=== PATIENT | female | born 1950 | race Caucasian/White ===

== ENCOUNTER → 2017-01-10 | Outpatient (CLI) | payer OTHER ==
[~2017-01-10] MED LIST: ASPIR-LOX325 MG PO; ATIVAN0.5 MG PO; AVELOX400 MG PO; BACTRIM DS 8001 TA1 PO; BENTYL10 MG PO; CIPRO250 MG PO; CLARITIN10 MG PO; MOTRIN600 MG PO; PEPCID20 MG PO; PHENERGAN25 M1 PO; TRIMOX500 MG PO; ZITHROMAX Z PA250 MG PO; Zofran4 MG PO
== END | disposition home or self-care (01) ==
LOC: RAD 14:24
DX: R05 Cough (principal); R06.02 Shortness of breath; J44.9 Chronic obstructive pulmonary disease, unspecified; Z87.891 Personal history of nicotine dependence

== ENCOUNTER → 2017-02-19 | Outpatient (CLI) | payer OTHER | END | disposition home or self-care (01) | LOC: US 02-12 14:00 | DX: D25.9 Leiomyoma of uterus, unspecified (principal) ==

== ENCOUNTER → 2018-04-03 | Day surgery (SDC) | payer OTHER | END | disposition home or self-care (01) | LOC: SDC 03-29 08:00 | DX: Z12.11 Encounter for screening for malignant neoplasm of colon (principal); Z53.8 Procedure and treatment not carried out for other reasons ==

== ENCOUNTER 2019-03-22 13:33 | Emergency (ER) | payer OTHER ==
[~2019-03-22] VITALS: Ht 152.4 cm; Wt 49.9 kg
[2019-03-22] MEDS ORDERED: DIFLUCAN150 MG PO (13:49)
[2019-03-22] MEDS ORDERED: AUGMENTIN 500500 M1 PO (13:49)
== END 2019-03-22 14:25 | disposition home or self-care (01) ==
LOC: ED 13:33
DX: L03.115 Cellulitis of right lower limb (principal); Z88.2 Allergy status to sulfonamides; Z79.899 Other long term (current) drug therapy

== ENCOUNTER → 2020-05-26 | Outpatient (CLI) | payer OTHER ==
[~2020-05-26] MED LIST changes: +AUGMENTIN 500500 M1 PO; +DIFLUCAN150 MG PO
[2020-05-26 11:34] LABS: HEMATOCRIT 46.4 % (37.0-47.0); MEAN CELL VOLUME 98.7 fl (81.0-99.0); MEAN CORPUSCULAR HGB 31.3 pg (27.0-31.0); MEAN CORPUSCULAR HGB CONC 31.7 g/dl (33.0-37.0); MEAN PLATELET VOLUME 11.3 fl (9.6-12.3); RED BLOOD COUNT 4.7 10*6/uL (4.10-5.10); RED CELL DISTRI WIDTH 12.7 % (0-14.5); WHITE BLOOD COUNT 6.9 10*3/uL (4.8-10.8)
[2020-05-26 12:04] LABS: ALBUMIN 3.9 gm/dl (3.1-4.5); BUN 13 mg/dl (7-24); CHLORIDE 110 mmol/L (98-107); CHOLESTEROL 226 mg/dL (<200); CREATININE 0.74 mg/dL (0.55-1.02); POTASSIUM 3.9 mmol/L (3.5-5.1); SGOT/AST 13 IU/L (3-35); SGPT/ALT 21 U/L (12-78); SODIUM 142 mmol/L (136-145); TOTAL PROTEIN 7.3 gm/dL (6.4-8.2); TRIGLYCERIDES 182 mg/dl (<150); VLDL CHOLESTEROL 36 mg/dL (6-40)
[2020-05-26 12:05] LABS: ALKALINE PHOSPHATASE 97 U/L (45-117); HDL CHOLESTEROL 49 mg/dl (40-60); LDL CHOLESTEROL 141 mg/dL (9-159)
== END | disposition home or self-care (01) ==
LOC: LAB 10:32
PROVIDERS: ATTEND Family Medicine
DX: J44.9 Chronic obstructive pulmonary disease, unspecified (principal); E55.9 Vitamin D deficiency, unspecified; F41.1 Generalized anxiety disorder; Z79.899 Other long term (current) drug therapy

== ENCOUNTER → 2022-10-10 | Outpatient (CLI) | payer OTHER ==
[2022-10-10 11:41] LABS: HEMATOCRIT 46.3 % (37.0-47.0); MEAN CELL VOLUME 95.5 fl (81.0-99.0); MEAN CORPUSCULAR HGB 30.9 pg (27.0-31.0); MEAN CORPUSCULAR HGB CONC 32.4 g/dl (33.0-37.0); MEAN PLATELET VOLUME 10.5 fl (9.6-12.3); RED BLOOD COUNT 4.85 10*6/uL (4.10-5.10); RED CELL DISTRI WIDTH 12.5 % (0-14.5)
[2022-10-10 11:58] LABS: ALKALINE PHOSPHATASE 97 U/L (46-116); BUN 8 mg/dl (9-23); CHLORIDE 105 mmol/L (98-107); CHOLESTEROL 228 mg/dL (<200); LDL CHOLESTEROL 143 mg/dL (9-159); POTASSIUM 4.2 mmol/L (3.4-5.1); SGPT/ALT 8 U/L (10-49); TOTAL PROTEIN 7.4 gm/dL (6.0-8.0); TRIGLYCERIDES 151 mg/dl (<150)
[2022-10-10 12:28] LABS: VITAMIN D, 25-HYDROXY 58.2 ng/mL (30-100)
== END | disposition home or self-care (01) ==
LOC: LAB 11:23
PROVIDERS: ATTEND Family Medicine
DX: J43.9 Emphysema, unspecified (principal); R06.02 Shortness of breath; R79.89 Other specified abnormal findings of blood chemistry; E55.9 Vitamin D deficiency, unspecified; R53.83 Other fatigue; R05.9 Cough, unspecified; F17.200 Nicotine dependence, unspecified, uncomplicated

== ENCOUNTER → 2023-01-08 | Outpatient (CLI) | payer MEDICARE, OTHER ==
[2023-01-08 09:08] LABS: HEMATOCRIT 45.1 % (37.0-47.0); MEAN CORPUSCULAR HGB 31.1 pg (27.0-31.0); MEAN CORPUSCULAR HGB CONC 32.4 g/dl (33.0-37.0); MEAN PLATELET VOLUME 11.1 fl (9.6-12.3); RED BLOOD COUNT 4.7 10*6/uL (4.10-5.10); RED CELL DISTRI WIDTH 12.8 % (0-14.5); WHITE BLOOD COUNT 6.4 10*3/uL (4.8-10.8)
[2023-01-08 10:13] LABS: ALKALINE PHOSPHATASE 115 U/L (46-116); BUN 6 mg/dl (9-23); CHLORIDE 110 mmol/L (98-107); CHOLESTEROL 188 mg/dL (<200); LDL CHOLESTEROL 105 mg/dL (9-159); POTASSIUM 4.5 mmol/L (3.4-5.1); SGPT/ALT 10 U/L (10-49); TOTAL PROTEIN 6.9 gm/dL (6.0-8.0); TRIGLYCERIDES 166 mg/dl (<150)
== END | disposition home or self-care (01) ==
LOC: LAB 08:31
PROVIDERS: ATTEND Family Medicine
DX: E78.00 Pure hypercholesterolemia, unspecified (principal); J44.9 Chronic obstructive pulmonary disease, unspecified

== ENCOUNTER → 2023-10-29 | Outpatient (CLI) | payer MEDICARE, OTHER ==
[~2023-10-29] MED LIST changes: +IOHEXOL 240 MG/ML 20 ML SOL ONE; +Lidocaine Hydrochloride 2% 5 ML SDV ONE
[2023-10-29 13:08] LABS: HEMATOCRIT 45.9 % (37.0-47.0); MEAN CELL VOLUME 97.2 fl (81.0-99.0); MEAN CORPUSCULAR HGB 30.9 pg (27.0-31.0); MEAN CORPUSCULAR HGB CONC 31.8 g/dl (33.0-37.0); MEAN PLATELET VOLUME 11.2 fl (9.6-12.3); RED BLOOD COUNT 4.72 10*6/uL (4.10-5.10); RED CELL DISTRI WIDTH 12.6 % (0-14.5); WHITE BLOOD COUNT 9.1 10*3/uL (4.8-10.8)
[2023-10-29 13:33] LABS: ALKALINE PHOSPHATASE 130 U/L (46-116); BUN 8 mg/dl (9-23); CHLORIDE 108 mmol/L (98-107); CHOLESTEROL 215 mg/dL (<200); LDL CHOLESTEROL 139 mg/dL (9-159); POTASSIUM 4.1 mmol/L (3.4-5.1); SGPT/ALT 10 U/L (5-49); TOTAL PROTEIN 7.2 gm/dL (6.0-8.0); TRIGLYCERIDES 106 mg/dl (<150)
[2023-10-29 13:34] LABS: VITAMIN D, 25-HYDROXY 126.6 ng/mL (30-100)
== END | disposition home or self-care (01) ==
LOC: LAB 12:23
PROVIDERS: ATTEND Family Medicine
DX: J44.9 Chronic obstructive pulmonary disease, unspecified (principal); E78.00 Pure hypercholesterolemia, unspecified; E55.9 Vitamin D deficiency, unspecified; R53.83 Other fatigue; R05.1 Acute cough; R06.02 Shortness of breath; R91.8 Other nonspecific abnormal finding of lung field

== ENCOUNTER → 2023-12-28 | Outpatient (CLI) | payer MEDICARE, OTHER ==
[~2023-12-28] MED LIST changes: -IOHEXOL 240 MG/ML 20 ML SOL ONE; +IOHEXOL 300 MG/ML 100 ML VIAL IV ONE; +IOHEXOL 300 MG/ML 100 ML VIAL ONE; -Lidocaine Hydrochloride 2% 5 ML SDV ONE
== END | disposition home or self-care (01) ==
LOC: CT 12-14 16:00
PROVIDERS: ATTEND Family Medicine
DX: J44.9 Chronic obstructive pulmonary disease, unspecified (principal); N28.1 Cyst of kidney, acquired; K44.9 Diaphragmatic hernia without obstruction or gangrene; Z72.0 Tobacco use

== ENCOUNTER → 2024-08-25 | Outpatient (CLI) | payer OTHER ==
[~2024-08-25] MED LIST changes: -IOHEXOL 300 MG/ML 100 ML VIAL IV ONE; -IOHEXOL 300 MG/ML 100 ML VIAL ONE
== END | disposition home or self-care (01) ==
LOC: RAD 13:02
PROVIDERS: ATTEND Family Medicine
DX: J43.8 Other emphysema (principal); R06.02 Shortness of breath; R05.9 Cough, unspecified

== ENCOUNTER → 2025-04-07 | Outpatient (CLI) | payer OTHER ==
[2025-04-07 11:18] LABS: MEAN CELL VOLUME 96.5 fl (81.0-99.0); MEAN CORPUSCULAR HGB 30.8 pg (27.0-31.0); MEAN PLATELET VOLUME 10.7 fl (9.6-12.3); NUCLEATED RED BLOOD CELL 0.0 % (0.0-0.0); NUCLEATED RED BLOOD CELL 0.0 10*3/uL (0.0-0.0); PLATELET COUNT AUTOMATED 312.0 10*3/uL (130-400); RED CELL DISTRI WIDTH 12.6 % (0-14.5)
[2025-04-07 12:09] LABS: BUN 8 mg/dl (9-23); LDL CHOLESTEROL 107 mg/dL (9-159); SGPT/ALT 11 U/L (5-49)
[2025-04-07 12:11] LABS: VITAMIN D, 25-HYDROXY 43.7 ng/mL (30-100)
== END | disposition home or self-care (01) ==
LOC: LAB 10:51
PROVIDERS: ATTEND Family Medicine
DX: E78.00 Pure hypercholesterolemia, unspecified (principal); J44.9 Chronic obstructive pulmonary disease, unspecified; E55.9 Vitamin D deficiency, unspecified

== ENCOUNTER → 2025-07-15 | Outpatient (CLI) | payer OTHER ==
[2025-07-15 12:33] LABS: MEAN CELL VOLUME 97.2 fl (81.0-99.0); MEAN CORPUSCULAR HGB 31.1 pg (27.0-31.0); MEAN PLATELET VOLUME 11.0 fl (9.6-12.3); NUCLEATED RED BLOOD CELL 0.0 % (0.0-0.0); NUCLEATED RED BLOOD CELL 0.0 10*3/uL (0.0-0.0); PLATELET COUNT AUTOMATED 317.0 10*3/uL (130-400); RED CELL DISTRI WIDTH 12.5 % (0-14.5)
[2025-07-15 13:31] LABS: BUN 8 mg/dl (9-23); LDL CHOLESTEROL 119 mg/dL (9-159)
== END | disposition home or self-care (01) ==
LOC: LAB 12:03
PROVIDERS: ATTEND Family Medicine
DX: J44.9 Chronic obstructive pulmonary disease, unspecified (principal); R06.02 Shortness of breath; R05.9 Cough, unspecified